=== PATIENT | male | born 1995 | race Caucasian/White ===

== ENCOUNTER 2020-01-15 01:16 | Inpatient (IN) | payer BC ==
[~2020-01-15] VITALS: Ht 177.8 cm; Wt 60.8 kg
[2020-01-15 02:30] VITALS: BP 122/74
--- NOTE | 2020-01-15 02:30 | NUR ---
NURSE NOTES: received patient via gurney accompanied by EMT'S. patient is a direct admit from [facility] [address] [facility]. alert and oriented x4, ambulatory. with a right hand swelling, 2/5 movement on the right hand, + sensation. per patient, there is a discomfort on the right hand when at rest. no discomfort upon movement." no skin issues. all belongings on the bedside and was signed by the patient. medical hx and home meds was given by the patient. oriented to the room set-up. bed locked and in lowest position. call light and light button within easy reach. paged dr. castellanos for admission orders, awaiting for call back.
--- NOTE | 2020-01-15 03:30 | NUR ---
NURSE NOTES: received a phone call from dr. castellanos and received admission orders. orders noted and carried out. charge nurse made aware.
[2020-01-15] MEDS ORDERED: HYDROcodone/Acetamin 5/325 tab ORAL PRN (04:30)
[2020-01-15] MEDS ORDERED: GABAPENTIN600 MG ORAL (04:46)
[2020-01-15] MEDS ORDERED: METOPROLOL TART50 M1 ORAL (04:46)
[2020-01-15] MEDS ORDERED: KEPPRA750 MG ORAL (04:46)
[2020-01-15] MEDS: D5 1/2NS 1,000 ML IV SCH ×2 (05:20→18:20)
[2020-01-15] MEDS: Ampicillin/Sulbactam Sod 3 GM in NS 110 ML IVPB SCH ×2 (05:20→11:28)
--- NOTE | 2020-01-15 07:04 | NUR ---
HAND-OFF: Report given to ktaey russo. patient is in stable condition.no pain or discomfort. not in any form of respiratory distress. plan of care endorsed
--- NOTE | 2020-01-15 07:15 | NUR ---
NURSE NOTES: Handoff received from Eliz Flores RN. Patient is asleep, no signs of distress noted. Left forearm IV is patent and intact, running IVF as ordered. Bed is low and locked, side rails up x2, call light within reach. Seizure precautions maintained.
[2020-01-15 08:00] VITALS: BP 117/74
[2020-01-15 08:38] LABS: HEMATOCRIT 44.7 % (42.0-52.0); HEMOGLOBIN 15.6 G/DL (14.2-18.0); MEAN CORPUSCULAR VOLUME 88 FL (80-99); PLATELET COUNT 233 K/UL (150-450); RED BLOOD COUNT 5.06 M/UL (4.70-6.10); RED CELL DISTRIBUTION WIDTH 10.9 % (11.6-14.8); WHITE BLOOD COUNT 5.7 K/UL (4.8-10.8)
[2020-01-15 09:03] LABS: ALANINE AMINOTRANSFERASE 121 U/L (12-78); ALBUMIN 3.3 G/DL (3.4-5.0); ALBUMIN/GLOBULIN RATIO 1.2 (1.0-2.7); ALKALINE PHOSPHATASE 41 U/L (46-116); ANION GAP 7 mmol/L (5-15); ASPARTATE AMINO TRANSFERASE 408 U/L (15-37); BILIRUBIN,TOTAL 0.7 MG/DL (0.2-1.0); BLOOD UREA NITROGEN 11 mg/dL (7-18); CALCIUM 8.4 MG/DL (8.5-10.1); CARBON DIOXIDE 30 MMOL/L (21-32); CHLORIDE 104 MMOL/L (98-107); CREATININE 1.1 MG/DL (0.55-1.30); PHOSPHORUS 4.8 MG/DL (2.5-4.9); SODIUM 141 MMOL/L (136-145)
--- NOTE | 2020-01-15 10:00 | NUR ---
NURSE NOTES: Patient's medications verified with patient and ordered from pharmacy.
[2020-01-15] MEDS: Metoprolol Tartrate 50mg tab ORAL SCH ×2 (11:29→20:58)
[2020-01-15 12:00] VITALS: BP 130/77
[2020-01-15] MEDS: Vancomycin 1gm/D5W 275ml IVPB SCH ×2 (13:04)
--- NOTE | 2020-01-15 14:50 | Consultation ---
History of Present Illness General Date patient seen: January 15, 2020 Present Illness HPI 24 y/o M with no prior medical history is transferred from [place] [facility] to [facility] on for R hand cellulitis. Patient presented with worsening R hand swelling and pain. He reported that sustained an upper extremity trauma; puncture wound to dorsum of his R hand after accidentally hitting the dorsal aspect of a dirty wooden table that he picked up from the side of the street. +intermittent numbness to thumb. Last tetanus shot was 5 yrs ago. Denied fever/chills. Allergies: Coded Allergies: AMOXICILLIN (Verified Allergy, Unknown, 01/15/20) patient referred had episodes of mouth sores when he was 8 years old. He received 2 doses of uNasyn on 01/14/20 in the hospital with no reaction. Medication History Scheduled PRN Gabapentin* (Gabapentin*), 600 MG ORAL FOUR TIMES A DAY PRN for For Anxiety, ( Reported) Levetiracetam (Keppra), 750 MG ORAL TID PRN for For Seizures, (Reported) Metoprolol Tartrate* (Metoprolol Tartrate*), 50 MG ORAL BID PRN for For High Blood Pressure, (Reported) Patient History Healthcare decision maker Resuscitation status Advanced Directive on File Patient History Narrative Pmhx: as above Shx: reviewed Fhmx: non contributory Physical Exam Last 24 Hour Vital Signs Date Time Temp Pulse Resp B/P (MAP) Pulse Ox O2 Delivery O2 Flow Rate FiO2 01/15/20 12:00 98.0 91 19 130/77 (94) 99 01/15/20 11:29 94 126/73 01/15/20 09:00 Room Air 01/15/20 08:00 98.9 56 18 117/74 (88) 100 01/15/20 04:12 Room Air 01/15/20 02:30 97.6 96 18 122/74 (90) 100 Intake and Output 01/14/20 01/15/20 19:00 07:00 Intake Total 500 ml Balance 500 ml Intake Oral 500 ml # Voids 2 Laboratory Tests Test 01/15/20 07:45 White Blood Count 5.7 K/UL (4.8-10.8) Red Blood Count 5.06 M/UL (4.70-6.10) Hemoglobin 15.6 G/DL (14.2-18.0) Hematocrit 44.7 % (42.0-52.0) Mean Corpuscular Volume 88 FL (80-99) Mean Corpuscular Hemoglobin 30.8 PG (27.0-31.0) Mean Corpuscular Hemoglobin Concent 34.8 G/DL (32.0-36.0) Red Cell Distribution Width 10.9 % (11.6-14.8) L Platelet Count 233 K/UL (150-450) Mean Platelet Volume 6.3 FL (6.5-10.1) L Neutrophils (%) (Auto) % (45.0-75.0) Lymphocytes (%) (Auto) % (20.0-45.0) Monocytes (%) (Auto) % (1.0-10.0) Eosinophils (%) (Auto) % (0.0-3.0) Basophils (%) (Auto) % (0.0-2.0) Differential Total Cells Counted 100 Neutrophils % (Manual) 72 % (45-75) Lymphocytes % (Manual) 15 % (20-45) L Monocytes % (Manual) 11 % (1-10) H Eosinophils % (Manual) 2 % (0-3) Basophils % (Manual) 0 % (0-2) Band Neutrophils 0 % (0-8) Platelet Estimate Adequate Platelet Morphology Normal Red Blood Cell Morphology Normal Sodium Level 141 MMOL/L (136-145) Potassium Level 4.0 MMOL/L (3.5-5.1) Chloride Level 104 MMOL/L (98-107) Carbon Dioxide Level 30 MMOL/L (21-32) Anion Gap 7 mmol/L (5-15) Blood Urea Nitrogen 11 mg/dL (7-18) Creatinine 1.1 MG/DL (0.55-1.30) Estimat Glomerular Filtration Rate > 60 mL/min (>60) Glucose Level 97 MG/DL (74-106) Calcium Level 8.4 MG/DL (8.5-10.1) L Phosphorus Level 4.8 MG/DL (2.5-4.9) Magnesium Level 2.0 MG/DL (1.8-2.4) Total Bilirubin 0.7 MG/DL (0.2-1.0) Aspartate Amino Transf (AST/SGOT) 408 U/L (15-37) H Alanine Aminotransferase (ALT/SGPT) 121 U/L (12-78) H Alkaline Phosphatase 41 U/L (46-116) L C-Reactive Protein, Quantitative 1.8 mg/dL (0.00-0.90) H Total Protein 6.1 G/DL (6.4-8.2) L Albumin 3.3 G/DL (3.4-5.0) L Globulin 2.8 g/dL Albumin/Globulin Ratio 1.2 (1.0-2.7) Height (Feet): 5 Height (Inches): 10.00 Weight (Pounds): 135 Medications Current Medications Medications (Trade) Dose Ordered Sig/Diane Route PRN Reason Start Time Stop Time Status Last Admin Dose Admin Acetaminophen (Tylenol) 650 mg Q6H PRN ORAL Mild Pain (Pain Scale 1-3) 01/15/20 04:30 02/14/20 04:29 Acetaminophen (Tylenol) 650 mg Q6H PRN ORAL Temp >100.5 01/15/20 04:30 02/14/20 04:29 Acetaminophen/ Hydrocodone Bitart ([place] 5/325) 1 tab Q6H PRN ORAL For Pain 01/15/20 04:30 01/22/20 04:29 Ampicillin Sodium/ Sulbactam Sodium 3 gm/Sodium Chloride 110 ml @ 220 mls/hr Q6HR IVPB 01/15/20 06:00 01/22/20 05:59 01/15/20 11:28 Dextrose/Sodium Chloride 1,000 ml @ 75 mls/hr [id number] IV 01/15/20 05:00 02/14/20 04:59 01/15/20 05:20 Gabapentin (Neurontin) 600 mg FOUR TIMES A DAY ORAL 01/15/20 10:45 02/14/20 10:44 01/15/20 11:29 Levetiracetam (Keppra) 150 mg DAILY ORAL 01/15/20 10:15 02/14/20 10:14 UNV Metoprolol Tartrate (Lopressor) 50 mg Q12HR ORAL 01/15/20 10:45 04/14/20 10:44 01/15/20 11:29 Ondansetron HCl (Zofran) 4 mg Q6H PRN IVP Nausea & Vomiting 01/15/20 04:30 02/14/20 04:29 Vancomycin HCl (Vanco pharmacy to dose) 1 ea DAILY PRN MISC Per rx protocol 01/15/20 04:30 02/14/20 04:29 Vancomycin HCl 1 gm/Dextrose 275 ml @ 183.708 mls/hr Q12HR@0100,1300 IVPB 01/15/20 13:00 01/20/20 12:59 01/15/20 13:04 Assessment/Plan Assessment/Plan: Abx: IV Vancomcyin 01/14- Unasyn 01/14 Assessment: R hand cellulitis/myositis (after cut with a dirty wooden table) -MRI R hand (at [place]): prelim report: severe diffuse muscle swelling and edema most prominent in between 1st and 2nd metacarpal. Heterogeneous contrast enhancement throughout the muscles. Extensive subcutaneous edema. No discrete fluid collection to suggest abscess. No marrow signal abnormality or joint effusion. Likely represents severe cellulitis/myositis. Focal fluid and contrast enhancement in carpal tunnel adjacent to tendons. Afebrile No leukocytosis Elevated LFTs Plan: -Continue empiric IV Vancomycin #1 and add Cefepime for gram negative/ pseudomonal coverage given exposure to dirty wood table from the streets. -f/u cx -Monitor CBC/CMP, temperatures -HIV ab, Hep panel, Abd US Thank you for consulting [facility]. Will continue to follow along with you. Discussed with Sarai Bowman M.D. January 15, 2020 14:50
--- NOTE | 2020-01-15 14:52 | History & Physical ---
History and Physical History & Physicial Dictated for Int Med-Dr Kruse no. [id number] Leonel Segura MD January 15, 2020 14:52
[2020-01-15 16:00] VITALS: BP 121/71
--- NOTE | 2020-01-15 19:15 | History and Physical Report ---
DATE OF ADMISSION: 01/15/2020 CHIEF COMPLAINT: This is a 24-year-old male who presents with a chief complaint of right hand pain and swelling. HISTORY OF PRESENT ILLNESS: Began on Thursday evening, 01/11/2020. Patient tried to move an abandoned table by the side of the street. Patient injured his right hand on the dorsum. Patient awoke morning and was experiencing numbness of the right hand. Patient then began to experience swelling of the right hand on , 01/12/2020. Patient states on Thursday morning 01/14/2020, patient was unable to extend his fingers. Patient initially presented to [facility] emergency room. An MRI revealed swelling of the right hand however no osteomyelitis. Patient is transferred to [facility] for insurance purposes. Patient is admitted with right hand cellulitis and swelling to rule out osteomyelitis or tenosynovitis. REVIEW OF SYSTEMS: CONSTITUTIONAL: Patient denies weight loss or weight gain. Patient denies fevers or chills. HEENT: Patient denies ear or throat pain. Patient denies headache. CARDIOVASCULAR: Patient denies palpitations or chest pain. CHEST: Patient denies wheeze or shortness of breath. ABDOMINAL: Patient denies nausea, vomiting, diarrhea, or constipation. GENITOURINARY: Patient denies dysuria or increased frequency of urination. NEUROMUSCULAR: Patient complains of right hand swelling and numbness as above. Patient also has history of seizure disorder. Patient denies generalized weakness. PAST MEDICAL HISTORY: Significant for: 1. Anxiety disorder. 2. Tachycardia related to anxiety. 3. Seizure disorder. PAST SURGICAL HISTORY: Patient denies. CURRENT MEDICATIONS: 1. Gabapentin 600 mg 1 tablet p.o. 4 times daily. 2. Keppra 750 mg p.o. 3 times daily. 3. Metoprolol 50 mg p.o. twice daily. ALLERGIES: To amoxicillin and sulfa. SOCIAL HISTORY: Patient is single. Patient admits to occasional vaping. Patient admits to occasional alcohol use. Patient denies drugs of abuse. PHYSICAL EXAMINATION: VITAL SIGNS: Temperature 98.6, respirations 16, pulse 106, blood pressure 121/81. GENERAL: Patient is well-developed, well-nourished male, in no apparent distress. HEENT: Eyes, pupils are equal and responsive to light and accommodation. Extraocular movements are intact. NECK: Supple without lymphadenopathy. CHEST: Lungs are clear to auscultation bilaterally without wheezes or rales. CARDIOVASCULAR: Regular rhythm and rate. S1, S2 are normal without murmurs, rubs, or gallops. ABDOMEN: Soft, nontender, and nondistended. Positive bowel sounds. No evidence of hepatosplenomegaly. Currently, no rebound or guarding noted. EXTREMITIES: Right hand is noticeably swollen compared to the left. Swelling includes both the dorsum and palmar surface. Patient is unable to extend right second through fifth fingers. NEUROLOGICAL: Cranial nerves II through XII are grossly intact without focal deficits. Motor strength is 5/5 bilaterally. Deep tendon reflexes are 2+ plantar. LABORATORY STUDIES: WBC 6.7, hemoglobin 14.9, hematocrit 44.4, platelets 280,000. Sodium 138, potassium 4.2, chloride 101, CO2 30, BUN 18, creatinine 1.09, glucose 74. MRI of the right hand from [place] demonstrated swelling of the right hand worse between the second and third fingers. ASSESSMENT: This is a 24-year-old male. 1. Cellulitis of the right hand. 2. Swelling of the right hand. 3. Pain of the right hand. 4. Anxiety disorder. 5. Seizure disorder. 6. Tachycardia. TREATMENT: 1. Right hand cellulitis/right hand pain. Patient has been started empirically on intravenous vancomycin and Unasyn. Unasyn will be discontinued secondary to amoxicillin allergy. He is to be switched to Levaquin. An Infectious Disease consultation has been obtained with Dr. Mac. A Surgery consultation has been obtained with Dr. Caban. 2. Anxiety disorder. Continue Neurontin as above. 3. Seizure disorder. Continue Keppra as above. 4. Tachycardic. Continue metoprolol as above. Leonel Segura M.D. DR: EVAN JOB#: [id number] CC:
--- NOTE | 2020-01-15 19:30 | NUR ---
HAND-OFF: Report given to BARBARA Simeon.
[2020-01-15 20:00] VITALS: BP 99/58
[2020-01-15] MEDS: Cefepime HCl 2 GM in D5W 55 ML IV SCH (21:41)
--- NOTE | 2020-01-15 23:58 | NUR ---
nurse's notes: received patient awake and alert; denies any pain or distress; right hand and fingers noted to be swollen; admits to some numbness and tingling; able to flex fingers without experiencing pain; plan of care discussed with patient who verbalized understanding and is in agreement. will continue to monitor.
[2020-01-16] VITALS: BP 116/58
[2020-01-16] MEDS: D5 1/2NS 1,000 ML IV SCH (01:27)
[2020-01-16] MEDS: Vancomycin 1gm/D5W 275ml IVPB SCH ×4 (01:27→13:00)
[2020-01-16 04:00] VITALS: BP 115/58
--- NOTE | 2020-01-16 06:57 | NUR ---
NURSE'S NOTES: NO SIGNIFICANT CHANGES NOTED THIS SHIFT; NO C/O OF PAIN; SLEPT WELL DURING THE NIGHT; STILL NO VISIBLE DRAINAGE FROM RIGHT HAND PUNCTURE WOUND. VSS.
[2020-01-16 07:12] LABS: ANION GAP 7 mmol/L (5-15); BLOOD UREA NITROGEN 9 mg/dL (7-18); CALCIUM 8.4 MG/DL (8.5-10.1); CARBON DIOXIDE 28 MMOL/L (21-32); CHLORIDE 106 MMOL/L (98-107); CREATININE 1.2 MG/DL (0.55-1.30); POTASSIUM 4.3 MMOL/L (3.5-5.1); SODIUM 141 MMOL/L (136-145)
[2020-01-16 07:13] LABS: BASOPHILS % (AUTO) 0.7 % (0.0-2.0); EOSINOPHILS % (AUTO) 2.1 % (0.0-3.0); HEMATOCRIT 45.9 % (42.0-52.0); HEMOGLOBIN 16.1 G/DL (14.2-18.0); LYMPHOCYTES % (AUTO) 20.8 % (20.0-45.0); MEAN CORPUSCULAR VOLUME 89 FL (80-99); MONOCYTES % (AUTO) 9.8 % (1.0-10.0); NEUTROPHILS % (AUTO) 66.7 % (45.0-75.0); PLATELET COUNT 257 K/UL (150-450); RED BLOOD COUNT 5.17 M/UL (4.70-6.10); RED CELL DISTRIBUTION WIDTH 10.9 % (11.6-14.8)
--- NOTE | 2020-01-16 07:30 | NUR ---
NURSE NOTES: Patient is in bed asleep. Stable. Breathing is even and unlabored. No visible signs of distress noted. Patient is in bed in locked and lowest position with call light within reach. All needs met at this time. Will continue to monitor.
--- NOTE | 2020-01-16 08:50 | NUR ---
NURSE NOTES: US being done at bedside.
[2020-01-16 09:00] VITALS: BP 107/61
[2020-01-16] MEDS: Metoprolol Tartrate 50mg tab ORAL SCH ×2 (09:00→21:12)
[2020-01-16] MEDS: Cefepime HCl 2 GM in D5W 55 ML IV SCH ×2 (09:00→21:12)
--- NOTE | 2020-01-16 12:00 | NUR ---
*-* NO INSURANCE INFORMATION IN THE BAR UNABLE TO SEND CLINICALS OR REVIEWS *-*
[2020-01-16 13:04] VITALS: BP 114/63
--- NOTE | 2020-01-16 13:31 | Consultation ---
History of Present Illness General Date patient seen: Jan 16, 2020 Present Illness HPI 24 year old male with hx of HTN, seizures presented initially with CC of swelling and pain or right hand, which started after one day of getting injured on back of that hand. A MRI ruled out osteomyelitis and he was transferred [place] [facility] [place]. He looks and is comfortable now. The swelling of the right hand has been decreasing. Allergies: Coded Allergies: AMOXICILLIN (Verified Allergy, Unknown, 01/15/20) patient referred had episodes of mouth sores when he was 8 years old. He received 2 doses of uNasyn on 01/14/20 in the hospital with no reaction. Medication History Scheduled PRN Gabapentin* (Gabapentin*), 600 MG ORAL FOUR TIMES A DAY PRN for For Anxiety, ( Reported) Levetiracetam (Keppra), 750 MG ORAL TID PRN for For Seizures, (Reported) Metoprolol Tartrate* (Metoprolol Tartrate*), 50 MG ORAL BID PRN for For High Blood Pressure, (Reported) Patient History Healthcare decision maker Resuscitation status Advanced Directive on File Past Medical/Surgical History Past Medical/Surgical History: (1) Seizure disorder (2) History of hypertension Review of Systems All Other Systems: negative except mentioned in HPI Physical Exam General Appearance: thin Lines, tubes and drains: peripheral HEENT: normocephalic, atraumatic Neck: non-tender, normal alignment Respiratory/Chest: chest wall non-tender, lungs clear Breasts: no masses Cardiovascular/Chest: normal peripheral pulses, normal rate Abdomen: normal bowel sounds, non tender Genitourinary/Rectal: normal genital exam, normal rectal exam Extremities: normal range of motion, non-tender Last 24 Hour Vital Signs Date Time Temp Pulse Resp B/P (MAP) Pulse Ox O2 Delivery O2 Flow Rate FiO2 01/16/20 13:04 97.9 65 20 114/63 (80) 97 01/16/20 09:00 97.3 66 20 107/61 (76) 97 01/16/20 09:00 66 107/61 01/16/20 09:00 Room Air 01/16/20 04:00 98.9 64 18 115/58 (77) 96 01/16/20 00:00 98.5 81 18 116/58 (77) 96 01/15/20 21:00 Room Air 01/15/20 20:58 86 99/58 01/15/20 20:00 98.4 86 18 99/58 (72) 99 01/15/20 16:00 98.6 67 19 121/71 (88) 98 Intake and Output 01/15/20 01/16/20 19:00 07:00 Intake Total 1200 ml 1210.000 ml Balance 1200 ml 1210.000 ml IV Total 1210.000 ml Other 1200 ml # Voids 2 Laboratory Tests Test 01/16/20 05:50 01/16/20 12:00 White Blood Count 9.0 K/UL (4.8-10.8) # Red Blood Count 5.17 M/UL (4.70-6.10) Hemoglobin 16.1 G/DL (14.2-18.0) Hematocrit 45.9 % (42.0-52.0) Mean Corpuscular Volume 89 FL (80-99) Mean Corpuscular Hemoglobin 31.2 PG (27.0-31.0) H Mean Corpuscular Hemoglobin Concent 35.1 G/DL (32.0-36.0) Red Cell Distribution Width 10.9 % (11.6-14.8) L Platelet Count 257 K/UL (150-450) Mean Platelet Volume 6.6 FL (6.5-10.1) Neutrophils (%) (Auto) 66.7 % (45.0-75.0) Lymphocytes (%) (Auto) 20.8 % (20.0-45.0) Monocytes (%) (Auto) 9.8 % (1.0-10.0) Eosinophils (%) (Auto) 2.1 % (0.0-3.0) Basophils (%) (Auto) 0.7 % (0.0-2.0) Sodium Level 141 MMOL/L (136-145) Potassium Level 4.3 MMOL/L (3.5-5.1) Chloride Level 106 MMOL/L (98-107) Carbon Dioxide Level 28 MMOL/L (21-32) Anion Gap 7 mmol/L (5-15) Blood Urea Nitrogen 9 mg/dL (7-18) Creatinine 1.2 MG/DL (0.55-1.30) Estimat Glomerular Filtration Rate > 60 mL/min (>60) Glucose Level 96 MG/DL (74-106) Calcium Level 8.4 MG/DL (8.5-10.1) L Hepatitis A IgM Antibody Pending Hepatitis B Surface Antigen Pending Hepatitis B Core IgM Antibody Pending Hepatitis C Antibody Pending HIV (1&2) Antibody Rapid Negative (NEGATIVE) Vancomycin Level Trough 9.6 ug/mL (5.0-12.0) Height (Feet): 5 Height (Inches): 10.00 Weight (Pounds): 135 Medications Current Medications Medications (Trade) Dose Ordered Sig/Diane Route PRN Reason Start Time Stop Time Status Last Admin Dose Admin Acetaminophen (Tylenol) 650 mg Q6H PRN ORAL Mild Pain (Pain Scale 1-3) 01/15/20 04:30 02/14/20 04:29 Acetaminophen (Tylenol) 650 mg Q6H PRN ORAL Temp >100.5 01/15/20 04:30 02/14/20 04:29 Acetaminophen/ Hydrocodone Bitart ([place] 5/325) 1 tab Q6H PRN ORAL For Pain 01/15/20 04:30 01/22/20 04:29 Cefepime HCl 2 gm/ Dextrose 55 ml @ 110 mls/hr EVERY 12 HOURS IV 01/15/20 21:00 01/22/20 20:59 01/16/20 09:00 Dextrose/Sodium Chloride 1,000 ml @ 75 mls/hr [id number] IV 01/15/20 05:00 02/14/20 04:59 01/16/20 01:27 Gabapentin (Neurontin) 600 mg FOUR TIMES A DAY ORAL 01/15/20 10:45 02/14/20 10:44 01/16/20 09:00 Levetiracetam (Keppra) 500 mg DAILY ORAL 01/15/20 16:00 02/14/20 15:59 01/16/20 09:00 Levofloxacin 100 ml @ 100 mls/hr Q24H IVPB 01/15/20 16:00 01/22/20 15:59 01/15/20 16:52 Metoprolol Tartrate (Lopressor) 50 mg Q12HR ORAL 01/15/20 10:45 04/14/20 10:44 01/15/20 11:29 Ondansetron HCl (Zofran) 4 mg Q6H PRN IVP Nausea & Vomiting 01/15/20 04:30 02/14/20 04:29 Vancomycin HCl (Vanco pharmacy to dose) 1 ea DAILY PRN MISC Per rx protocol 01/15/20 04:30 02/14/20 04:29 Vancomycin HCl 1 gm/Dextrose 275 ml @ 183.708 mls/hr Q12HR@0100,1300 IVPB 01/15/20 13:00 01/20/20 12:59 01/16/20 01:27 Assessment/Plan Problem List: (1) Cellulitis of hand, right ICD Codes: L03.113 - Cellulitis of right upper limb SNOMED: 58116950 (2) History of hypertension ICD Codes: Z86.79 - Personal history of other diseases of the circulatory system SNOMED: 930654688 (3) Seizure disorder ICD Codes: G40.909 - Epilepsy, unspecified, not intractable, without status epilepticus SNOMED: 568011117 Assessment/Plan: iv abx check cultures from [facility] check electrolytes monitor BP home meds reviewed dvt prophylaxis. Jarrell Collins MD Jan 16, 2020 13:31
--- NOTE | 2020-01-16 14:20 | Diagnostic Imaging Report ---
Indication: Elevated liver function tests Technique: Potts-scale and duplex images of the upper abdomen were obtained Comparison: none Findings: Gallbladder is unremarkable, without stones, wall thickening, nor pericholecystic fluid. Wall thickness is upper limits of normal, probably due to underdistention. Sonographic Chase's sign is negative. Common bile duct measures to mm in diameter. No intrahepatic biliary ductal dilatation. Liver demonstrates normal echogenicity, no focal abnormality. Portal vein and hepatic veins are patent. Pancreas is unremarkable. Spleen is unremarkable. Left kidney measures 11.4 cm in length. Right kidney measures 10.6 cm length. Both kidneys demonstrate normal echogenicity. There is no hydronephrosis. No focal abnormality . Non-aneurysmal abdominal aorta . Impression: Negative
--- NOTE | 2020-01-16 14:26 | NUR ---
*-* INSURANCE *-* ALL AVAILABLE CLINICALS HAVE BEEN FAXED TO: SHELLI BRITO:DEBRA REF# [id number] P; [phone] F: [phone]
--- NOTE | 2020-01-16 14:40 | Infectious Diseases Prog Note ---
Assessment/Plan Assessment/Plan Assessment: R hand cellulitis/myositis (after cut with a dirty wooden table); much improved -01/16 MRI hand: EXTENSIVE SWELLING AND EDEMA NOTED IN MULTIPLE MUSCLE GROUPS OF THE HAND WITH INTENSE ENHANCEMENT ON POSTCONTRAST IMAGES. GIVEN THE PATIENT' S HISTORY, FINDINGS SUGGESTIVE OF EXTENSIVE RHABDOMYOLYSIS OF THE HAND MUSCULATURE. NO MR EVIDENCE OF HEMATOMA, FLUID COLLECTION. NO ACUTE BONY ABNORMALITY DEMONSTRATED. -MRI R hand (at [facility]): prelim report: severe diffuse muscle swelling and edema most prominent in between 1st and 2nd metacarpal. Heterogeneous contrast enhancement throughout the muscles. Extensive subcutaneous edema. No discrete fluid collection to suggest abscess. No marrow signal abnormality or joint effusion. Likely represents severe cellulitis/myositis. Focal fluid and contrast enhancement in carpal tunnel adjacent to tendons. Afebrile No leukocytosis Elevated LFTs; improving -Abd US: Negative -HIV ab screen neg -Acute Hep panel neg Plan: -Continue empiric IV Vancomycin #3 and Cefepime #3 for gram negative/ pseudomonal coverage given exposure to dirty wood table from the streets. --upon discharge will transition to PO Bactrim DS 1 tab bid and Levaquin 500mg qd for 10 more days -01/15 SP Levaquin #2 -01/14 SP Unasyn #1 -f/u cx -Monitor CBC/CMP, temperatures Thank you for consulting [facility]. Will continue to follow along with you. Discussed with RN. Subjective Allergies: Coded Allergies: AMOXICILLIN (Verified Allergy, Unknown, 01/15/20) patient referred had episodes of mouth sores when he was 8 years old. He received 2 doses of uNasyn on 01/14/20 in the hospital with no reaction. Subjective afebrile no leukocytosis Bcx NTD LFTs improving R hand swelling, redness and TTP much improved Objective Vital Signs Last 24 Hour Vital Signs Date Time Temp Pulse Resp B/P (MAP) Pulse Ox O2 Delivery O2 Flow Rate FiO2 01/16/20 13:04 97.9 65 20 114/63 (80) 97 01/16/20 09:00 97.3 66 20 107/61 (76) 97 01/16/20 09:00 66 107/61 01/16/20 09:00 Room Air 01/16/20 04:00 98.9 64 18 115/58 (77) 96 01/16/20 00:00 98.5 81 18 116/58 (77) 96 01/15/20 21:00 Room Air 01/15/20 20:58 86 99/58 01/15/20 20:00 98.4 86 18 99/58 (72) 99 01/15/20 16:00 98.6 67 19 121/71 (88) 98 Height (Feet): 5 Height (Inches): 10.00 Weight (Pounds): 135 Objective GENERAL: Patient is well-developed, well-nourished male, in no apparent distress. HEENT: Eyes, pupils are equal and responsive to light and accommodation. Extraocular movements are intact. NECK: Supple CHEST: Lungs are clear to auscultation bilaterally without wheezes or rales. CARDIOVASCULAR: Regular rhythm and rate. S1, S2 are normal without murmurs, rubs, or gallops. ABDOMEN: Soft, nontender, and nondistended. Positive bowel sounds. No evidence of hepatosplenomegaly. Currently, no rebound or guarding noted. EXTREMITIES: Right hand is noticeably swollen compared to the left. Swelling includes both the dorsum and palmar surface. Patient is unable to extend right second through fifth fingers.; swelling and TTP improving; redness resolved Laboratory Tests Test 01/16/20 05:50 01/16/20 12:00 White Blood Count 9.0 K/UL (4.8-10.8) # Red Blood Count 5.17 M/UL (4.70-6.10) Hemoglobin 16.1 G/DL (14.2-18.0) Hematocrit 45.9 % (42.0-52.0) Mean Corpuscular Volume 89 FL (80-99) Mean Corpuscular Hemoglobin 31.2 PG (27.0-31.0) H Mean Corpuscular Hemoglobin Concent 35.1 G/DL (32.0-36.0) Red Cell Distribution Width 10.9 % (11.6-14.8) L Platelet Count 257 K/UL (150-450) Mean Platelet Volume 6.6 FL (6.5-10.1) Neutrophils (%) (Auto) 66.7 % (45.0-75.0) Lymphocytes (%) (Auto) 20.8 % (20.0-45.0) Monocytes (%) (Auto) 9.8 % (1.0-10.0) Eosinophils (%) (Auto) 2.1 % (0.0-3.0) Basophils (%) (Auto) 0.7 % (0.0-2.0) Sodium Level 141 MMOL/L (136-145) Potassium Level 4.3 MMOL/L (3.5-5.1) Chloride Level 106 MMOL/L (98-107) Carbon Dioxide Level 28 MMOL/L (21-32) Anion Gap 7 mmol/L (5-15) Blood Urea Nitrogen 9 mg/dL (7-18) Creatinine 1.2 MG/DL (0.55-1.30) Estimat Glomerular Filtration Rate > 60 mL/min (>60) Glucose Level 96 MG/DL (74-106) Calcium Level 8.4 MG/DL (8.5-10.1) L Hepatitis A IgM Antibody Pending Hepatitis B Surface Antigen Pending Hepatitis B Core IgM Antibody Pending Hepatitis C Antibody Pending HIV (1&2) Antibody Rapid Negative (NEGATIVE) Vancomycin Level Trough 9.6 ug/mL (5.0-12.0) Current Medications Medications (Trade) Dose Ordered Sig/Diane Route PRN Reason Start Time Stop Time Status Last Admin Dose Admin Acetaminophen (Tylenol) 650 mg Q6H PRN ORAL Mild Pain (Pain Scale 1-3) 01/15/20 04:30 02/14/20 04:29 Acetaminophen (Tylenol) 650 mg Q6H PRN ORAL Temp >100.5 01/15/20 04:30 02/14/20 04:29 Acetaminophen/ Hydrocodone Bitart ([place] 5/325) 1 tab Q6H PRN ORAL For Pain 01/15/20 04:30 01/22/20 04:29 Cefepime HCl 2 gm/ Dextrose 55 ml @ 110 mls/hr EVERY 12 HOURS IV 01/15/20 21:00 01/22/20 20:59 01/16/20 09:00 Dextrose/Sodium Chloride 1,000 ml @ 75 mls/hr [id number] IV 01/15/20 05:00 02/14/20 04:59 01/16/20 01:27 Gabapentin (Neurontin) 600 mg FOUR TIMES A DAY ORAL 01/15/20 10:45 02/14/20 10:44 01/16/20 13:00 Levetiracetam (Keppra) 500 mg DAILY ORAL 01/15/20 16:00 02/14/20 15:59 01/16/20 09:00 Levofloxacin 100 ml @ 100 mls/hr Q24H IVPB 01/15/20 16:00 01/22/20 15:59 01/15/20 16:52 Metoprolol Tartrate (Lopressor) 50 mg Q12HR ORAL 01/15/20 10:45 04/14/20 10:44 01/15/20 11:29 Ondansetron HCl (Zofran) 4 mg Q6H PRN IVP Nausea & Vomiting 01/15/20 04:30 02/14/20 04:29 Vancomycin HCl (Vanco pharmacy to dose) 1 ea DAILY PRN MISC Per rx protocol 01/15/20 04:30 02/14/20 04:29 Vancomycin HCl 1 gm/Dextrose 275 ml @ 183.708 mls/hr Q12HR@0100,1300 IVPB 01/15/20 13:00 01/16/20 15:00 01/16/20 13:00 Vancomycin/Sodium Chloride 275 ml @ 183.333 mls/hr Q12HR@0000,1200 IVPB 01/17/20 00:00 01/22/20 00:00 Sarai Mac M.D. Jan 16, 2020 14:40
[2020-01-16 16:00] VITALS: BP 101/60
--- NOTE | 2020-01-16 16:48 | NUR ---
CASE MANAGEMENT: INITIAL REVIEW 24YR OLD MALE FROM [facility] CC:HAND PAIN SI:RIGHT HAND CELLULITIS 98.9 56 18 117/74 100% ON RA CA+ 8.4 AST 108 ALT 121 IS:IV AMPICILLIN \: [facility]G UNIT CASE MANAGEMENT: REVIEW 01/16/20 SI:RIGHT HAND CELLULITIS 97.3 66 20 107/61 97 % ON RA CA+ 8.4 IS:IV VANCO X1 IV CEFEPIME BID IV D5@75ML/HR NEURONTIN PO QQID KEPPRA PO QD LOPRESSOR PO BID US ABD Complete-Negative \: 3E MED SURG UNIT PLAN: CHECK CX FROM [facility]
[2020-01-16] MEDS ORDERED: D5 1/2NS 1000ml IV ONE (17:03)
--- NOTE | 2020-01-16 17:42 | Internal Med Progress Note ---
Subjective Date of Service: Jan 16, 2020 Physician Name Leonel Segura Attending Physician Jc Kruse MD Current Medications Medications (Trade) Dose Ordered Sig/Diane Route PRN Reason Start Time Stop Time Status Last Admin Dose Admin Acetaminophen (Tylenol) 650 mg Q6H PRN ORAL Mild Pain (Pain Scale 1-3) 01/15/20 04:30 02/14/20 04:29 Acetaminophen (Tylenol) 650 mg Q6H PRN ORAL Temp >100.5 01/15/20 04:30 02/14/20 04:29 Acetaminophen/ Hydrocodone Bitart ([place] 5/325) 1 tab Q6H PRN ORAL For Pain 01/15/20 04:30 01/22/20 04:29 Cefepime HCl 2 gm/ Dextrose 55 ml @ 110 mls/hr EVERY 12 HOURS IV 01/15/20 21:00 01/22/20 20:59 01/16/20 09:00 Dextrose/Sodium Chloride 1,000 ml @ 75 mls/hr [id number] IV 01/15/20 05:00 02/14/20 04:59 01/16/20 01:27 Gabapentin (Neurontin) 600 mg FOUR TIMES A DAY ORAL 01/15/20 10:45 02/14/20 10:44 01/16/20 13:00 Levetiracetam (Keppra) 500 mg DAILY ORAL 01/15/20 16:00 02/14/20 15:59 01/16/20 09:00 Metoprolol Tartrate (Lopressor) 50 mg Q12HR ORAL 01/15/20 10:45 04/14/20 10:44 01/15/20 11:29 Ondansetron HCl (Zofran) 4 mg Q6H PRN IVP Nausea & Vomiting 01/15/20 04:30 02/14/20 04:29 Vancomycin HCl (Vanco pharmacy to dose) 1 ea DAILY PRN MISC Per rx protocol 01/15/20 04:30 02/14/20 04:29 Vancomycin/Sodium Chloride 275 ml @ 183.333 mls/hr Q12HR@0000,1200 IVPB 01/17/20 00:00 01/22/20 00:00 Allergies: Coded Allergies: AMOXICILLIN (Verified Allergy, Unknown, 01/15/20) patient referred had episodes of mouth sores when he was 8 years old. He received 2 doses of uNasyn on 01/14/20 in the hospital with no reaction. ROS Limited/Unobtainable: No Constitutional: Reports: no symptoms HEENT: Reports: no symptoms Cardiovascular: Reports: no symptoms Respiratory: Reports: no symptoms Gastrointestinal/Abdominal: Reports: no symptoms Genitourinary: Reports: no symptoms Neurologic/Psychiatric: Reports: no symptoms Subjective 24 YO M admitted with right hand pain/swelling. Now right hand cellulitis/ tenosynovitis. Cover for Int Bin-DR Kruse Objective Last Vital Signs Date Time Temp Pulse Resp B/P (MAP) Pulse Ox O2 Delivery O2 Flow Rate FiO2 01/16/20 16:00 98.0 67 18 101/60 (74) 97 01/16/20 09:00 Room Air Laboratory Tests Test 01/16/20 05:50 01/16/20 12:00 White Blood Count 9.0 K/UL (4.8-10.8) # Red Blood Count 5.17 M/UL (4.70-6.10) Hemoglobin 16.1 G/DL (14.2-18.0) Hematocrit 45.9 % (42.0-52.0) Mean Corpuscular Volume 89 FL (80-99) Mean Corpuscular Hemoglobin 31.2 PG (27.0-31.0) H Mean Corpuscular Hemoglobin Concent 35.1 G/DL (32.0-36.0) Red Cell Distribution Width 10.9 % (11.6-14.8) L Platelet Count 257 K/UL (150-450) Mean Platelet Volume 6.6 FL (6.5-10.1) Neutrophils (%) (Auto) 66.7 % (45.0-75.0) Lymphocytes (%) (Auto) 20.8 % (20.0-45.0) Monocytes (%) (Auto) 9.8 % (1.0-10.0) Eosinophils (%) (Auto) 2.1 % (0.0-3.0) Basophils (%) (Auto) 0.7 % (0.0-2.0) Sodium Level 141 MMOL/L (136-145) Potassium Level 4.3 MMOL/L (3.5-5.1) Chloride Level 106 MMOL/L (98-107) Carbon Dioxide Level 28 MMOL/L (21-32) Anion Gap 7 mmol/L (5-15) Blood Urea Nitrogen 9 mg/dL (7-18) Creatinine 1.2 MG/DL (0.55-1.30) Estimat Glomerular Filtration Rate > 60 mL/min (>60) Glucose Level 96 MG/DL (74-106) Calcium Level 8.4 MG/DL (8.5-10.1) L Hepatitis A IgM Antibody Pending Hepatitis B Surface Antigen Pending Hepatitis B Core IgM Antibody Pending Hepatitis C Antibody Pending HIV (1&2) Antibody Rapid Negative (NEGATIVE) Vancomycin Level Trough 9.6 ug/mL (5.0-12.0) Intake and Output 01/15/20 01/16/20 18:59 06:59 Intake Total 1200 ml 1210.000 ml Balance 1200 ml 1210.000 ml IV Total 1210.000 ml Other 1200 ml # Voids 2 Objective PHYSICAL EXAMINATION: GENERAL: Patient is well-developed, well-nourished male, in no apparent distress. HEENT: Eyes, pupils are equal and responsive to light and accommodation. Extraocular movements are intact. NECK: Supple without lymphadenopathy. CHEST: Lungs are clear to auscultation bilaterally without wheezes or rales. CARDIOVASCULAR: Regular rhythm and rate. S1, S2 are normal without murmurs, rubs, or gallops. ABDOMEN: Soft, nontender, and nondistended. Positive bowel sounds. No evidence of hepatosplenomegaly. Currently, no rebound or guarding noted. EXTREMITIES: Right hand is noticeably swollen compared to the left. Swelling includes both the dorsum and palmar surface. Patient is unable to extend right second through fifth fingers. NEUROLOGICAL: Cranial nerves II through XII are grossly intact without focal deficits. Motor strength is 5/5 bilaterally. Deep tendon reflexes are 2+ plantar. Assessment/Plan Assessment/Plan ASSESSMENT: This is a 24-year-old male. 1. Cellulitis of the right hand. 2. Swelling of the right hand. 3. Pain of the right hand. 4. Anxiety disorder. 5. Seizure disorder. 6. Tachycardia. 7. Elevated liver funct tests TREATMENT: 1. Right hand cellulitis/right hand pain. ABX= vancomycin and cefepime. Unasyn will be discontinued secondary to amoxicillin allergy. S/P levaquin. Infectious Disease= Dr. Estefania. Surgery consultation= Dr. Caban. 2. Anxiety disorder. Continue Neurontin as above. 3. Seizure disorder. Continue Keppra as above. 4. Tachycardic. Continue metoprolol as above. 5. Abdominal ultrasound pending Leonel Segura MD Jan 16, 2020 17:42
[2020-01-16] MEDS ORDERED: Gadavist 7.5mMol/7.5ml vial IV PRN (17:45)
--- NOTE | 2020-01-16 19:29 | NUR ---
NURSE NOTES: Received report from BARBARA Lucero. Pt is awake, lying semi-street's; comfortably resting. No signs of acute distress noted. Pt denies any pain at this time. AOx4; able to make needs known. Checked IV site; patent and flushed. No erythema, bleeding, of infiltration noted. Bed at lowest position. Brakes on. Siderails up x3. Call light within reach. Will continue to monitor.
--- NOTE | 2020-01-16 19:30 | NUR ---
HAND-OFF: Report given to Imani JIMENEZ. Patient is stable.
[2020-01-16 19:59] VITALS: BP 113/64
[2020-01-16] MEDS: Vancomycin 1.25gm/NS Premix q24h IVPB SCH (23:53)
[2020-01-17] VITALS: BP 111/52
[2020-01-17 04:00] VITALS: BP 115/60
--- NOTE | 2020-01-17 07:10 | NUR ---
HAND-OFF: Report given to BARBARA Lucero. Pt is sleeping and in stable condition. Plan of care endorsed.
[2020-01-17 07:15] LABS: ALANINE AMINOTRANSFERASE 101 U/L (12-78); ALKALINE PHOSPHATASE 36 U/L (46-116); ANION GAP 6 mmol/L (5-15); ASPARTATE AMINO TRANSFERASE 226 U/L (15-37); BILIRUBIN,TOTAL 0.6 MG/DL (0.2-1.0); BLOOD UREA NITROGEN 14 mg/dL (7-18); CALCIUM 8.4 MG/DL (8.5-10.1); CARBON DIOXIDE 29 MMOL/L (21-32); CHLORIDE 105 MMOL/L (98-107); CREATININE 0.9 MG/DL (0.55-1.30); PHOSPHORUS 3.9 MG/DL (2.5-4.9); POTASSIUM 4.2 MMOL/L (3.5-5.1); SODIUM 140 MMOL/L (136-145)
--- NOTE | 2020-01-17 07:15 | NUR ---
NURSE NOTES: Patient is in bed awake and able to verbalize needs. Stable. Denies pain or SOB. Right hand appears swollen, patient denies discomfort. Patient instructed to use call light for assistance, verbalized understanding. Patient is in bed in locked position with call light within reach. All needs met at this time. WIll continue to monitor.
[2020-01-17 07:18] LABS: BASOPHILS % (AUTO) 1.1 % (0.0-2.0); EOSINOPHILS % (AUTO) 1.4 % (0.0-3.0); HEMOGLOBIN 15.1 G/DL (14.2-18.0); LYMPHOCYTES % (AUTO) 18.2 % (20.0-45.0); MEAN CORPUSCULAR VOLUME 89 FL (80-99); NEUTROPHILS % (AUTO) 69.3 % (45.0-75.0); PLATELET COUNT 201 K/UL (150-450); RED BLOOD COUNT 4.84 M/UL (4.70-6.10); RED CELL DISTRIBUTION WIDTH 10.8 % (11.6-14.8); WHITE BLOOD COUNT 7.1 K/UL (4.8-10.8)
[2020-01-17 08:00] VITALS: BP 119/67
--- NOTE | 2020-01-17 08:40 | NUR ---
NURSE NOTES: Patient taken downstairs for MRI.
--- NOTE | 2020-01-17 09:41 | NUR ---
NURSE NOTES: Patient arrived on unit. Stable.
[2020-01-17] MEDS: Metoprolol Tartrate 50mg tab ORAL SCH ×2 (09:43→20:36)
[2020-01-17] MEDS: Cefepime HCl 2 GM in D5W 55 ML IV SCH ×2 (09:43→20:35)
--- NOTE | 2020-01-17 10:34 | NUR ---
*-* INSURANCE *-* UPDATED CLINICALS AND REVIEW HAVE BEEN FAXED TO: SHELLI BRITO:DEBRA REF# [id number] P; [phone] F: [phone]
[2020-01-17 12:00] VITALS: BP 104/89
--- NOTE | 2020-01-17 12:22 | Diagnostic Imaging Report ---
EXAM: MRI MRI Hand wo/w Contrast RT TECHNIQUE: MR examination of the right hand includes sagittal T1, coronal T1, proton density, T2 and STIR sequences as well as axial T1 and T2 sequences. Following administration of intravenous gadolinium, axial and coronal fat-suppressed T1 images obtained. CLINICAL HISTORY: History of trauma to hand. Swelling and pain. COMPARISON: None FINDINGS: The dominant abnormality is extensive swelling and edema noted in multiple muscle groups of the hand including abductor and flexor muscles, the lumbricals as well as the interosseous muscles. These affected muscles appear enlarged with diffuse striated edema. There is no distinct fluid collection within the affected muscles. On postcontrast images, there is intense enhancement both at the periphery of these muscles as well as striated enhancement of internal fibers. The bony structures of the hand appear intact. Normal marrow signal demonstrated. Joint spaces are maintained. Visualized tendinous and ligamentous structures are unremarkable. IMPRESSION: EXTENSIVE SWELLING AND EDEMA NOTED IN MULTIPLE MUSCLE GROUPS OF THE HAND WITH INTENSE ENHANCEMENT ON POSTCONTRAST IMAGES. GIVEN THE PATIENT'S HISTORY, FINDINGS SUGGESTIVE OF EXTENSIVE RHABDOMYOLYSIS OF THE HAND MUSCULATURE. NO MR EVIDENCE OF HEMATOMA, FLUID COLLECTION. NO ACUTE BONY ABNORMALITY DEMONSTRATED.
[2020-01-17] MEDS: Vancomycin 1.25gm/NS Premix q24h IVPB SCH (12:30)
--- NOTE | 2020-01-17 14:05 | Pulmonology Progress Note ---
Subjective ROS Limited/Unobtainable: No Allergies: Coded Allergies: AMOXICILLIN (Verified Allergy, Unknown, 01/17/20) patient referred had episodes of mouth sores when he was 8 years old. He received 2 doses of uNasyn on 01/14/20 in the hospital with no reaction. Tolerates cephalosporins Objective Last 24 Hour Vital Signs Date Time Temp Pulse Resp B/P (MAP) Pulse Ox O2 Delivery O2 Flow Rate FiO2 01/17/20 12:00 98.3 62 20 104/89 (94) 98 01/17/20 09:43 64 119/67 01/17/20 08:50 Room Air 01/17/20 08:00 97.5 64 18 119/67 (84) 99 01/17/20 04:00 98.0 62 16 115/60 (78) 97 01/17/20 00:00 97.8 53 14 111/52 (71) 97 01/16/20 21:12 88 122/100 01/16/20 21:00 Room Air 01/16/20 19:59 98.1 77 17 113/64 (80) 98 01/16/20 16:00 98.0 67 18 101/60 (74) 97 Intake and Output 01/16/20 01/17/20 19:00 07:00 Intake Total 480 ml 480 ml Balance 480 ml 480 ml Intake Oral 480 ml 480 ml # Voids 2 General Appearance: WD/WN HEENT: normocephalic, atraumatic Respiratory: chest wall non-tender, lungs clear Cardiovascular: normal peripheral pulses, normal rate Abdomen: normal bowel sounds, soft, non tender Genitourinary: normal external genitalia Extremities: no cyanosis Skin: no rash 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 Lymphatic: no neck adenopathy Microbiology Date/Time Source Procedure Growth Status 01/15/20 07:53 Blood Blood Culture - Preliminary NO GROWTH AFTER 24 HOURS Resulted 01/15/20 07:45 Blood Blood Culture - Preliminary NO GROWTH AFTER 24 HOURS Resulted Laboratory Tests 01/17/20 05:55: White Blood Count 7.1, Red Blood Count 4.84, Hemoglobin 15.1, Hematocrit 43.0, Mean Corpuscular Volume 89, Mean Corpuscular Hemoglobin 31.2H, Mean Corpuscular Hemoglobin Concent 35.1, Red Cell Distribution Width 10.8L, Platelet Count 201, Mean Platelet Volume 6.7, Neutrophils (%) (Auto) 69.3, Lymphocytes (%) (Auto) 18.2L, Monocytes (%) (Auto) 10.0, Eosinophils (%) (Auto) 1.4, Basophils (%) ( Auto) 1.1, Erythrocyte Sedimentation Rate 5, Sodium Level 140, Potassium Level 4.2, Chloride Level 105, Carbon Dioxide Level 29, Anion Gap 6, Blood Urea Nitrogen 14, Creatinine 0.9, Estimat Glomerular Filtration Rate > 60, Glucose Level 89, Calcium Level 8.4L, Phosphorus Level 3.9, Magnesium Level 2.0, Total Bilirubin 0.6, Aspartate Amino Transf (AST/SGOT) 226H, Alanine Aminotransferase (ALT/SGPT) 101H, Alkaline Phosphatase 36L, C-Reactive Protein, Quantitative 0.8 , Total Protein 5.9L, Albumin 3.0L, Globulin 2.9, Albumin/Globulin Ratio 1.0 Current Medications Medications (Trade) Dose Ordered Sig/Diane Route PRN Reason Start Time Stop Time Status Last Admin Dose Admin Acetaminophen (Tylenol) 650 mg Q6H PRN ORAL Mild Pain (Pain Scale 1-3) 01/15/20 04:30 02/14/20 04:29 Acetaminophen (Tylenol) 650 mg Q6H PRN ORAL Temp >100.5 01/15/20 04:30 02/14/20 04:29 Acetaminophen/ Hydrocodone Bitart ([place] 5/325) 1 tab Q6H PRN ORAL For Pain 01/15/20 04:30 01/22/20 04:29 Cefepime HCl 2 gm/ Dextrose 55 ml @ 110 mls/hr EVERY 12 HOURS IV 01/15/20 21:00 01/22/20 20:59 01/17/20 09:43 Gabapentin (Neurontin) 600 mg FOUR TIMES A DAY ORAL 01/15/20 10:45 02/14/20 10:44 01/17/20 12:30 Gadobutrol (Gadavist) 7.5 mmol NOW PRN IV Radiology Procedure 01/16/20 17:45 01/20/20 17:37 Levetiracetam (Keppra) 500 mg DAILY ORAL 01/15/20 16:00 02/14/20 15:59 01/17/20 09:43 Metoprolol Tartrate (Lopressor) 50 mg Q12HR ORAL 01/15/20 10:45 04/14/20 10:44 01/17/20 09:43 Ondansetron HCl (Zofran) 4 mg Q6H PRN IVP Nausea & Vomiting 01/15/20 04:30 02/14/20 04:29 Vancomycin HCl (Vanco pharmacy to dose) 1 ea DAILY PRN MISC Per rx protocol 01/15/20 04:30 02/14/20 04:29 Vancomycin/Sodium Chloride 275 ml @ 183.333 mls/hr Q12HR@0000,1200 IVPB 01/17/20 00:00 01/22/20 00:00 01/17/20 12:30 Assessment/Plan Problems: (1) Cellulitis of hand, right (2) History of hypertension (3) Seizure disorder Assessment/Plan MRI reviewed, lots of edema Ortho called continue abx symptomatic treatment. monitor BP Jarrell Collins MD Jan 17, 2020 14:05
--- NOTE | 2020-01-17 15:57 | Internal Med Progress Note ---
Subjective Date of Service: Jan 17, 2020 Physician Name Leonel Segura Attending Physician Jc Kruse MD Current Medications Medications (Trade) Dose Ordered Sig/Diane Route PRN Reason Start Time Stop Time Status Last Admin Dose Admin Acetaminophen (Tylenol) 650 mg Q6H PRN ORAL Mild Pain (Pain Scale 1-3) 01/15/20 04:30 02/14/20 04:29 Acetaminophen (Tylenol) 650 mg Q6H PRN ORAL Temp >100.5 01/15/20 04:30 02/14/20 04:29 Acetaminophen/ Hydrocodone Bitart ([place] 5/325) 1 tab Q6H PRN ORAL For Pain 01/15/20 04:30 01/22/20 04:29 Cefepime HCl 2 gm/ Dextrose 55 ml @ 110 mls/hr EVERY 12 HOURS IV 01/15/20 21:00 01/22/20 20:59 01/17/20 09:43 Gabapentin (Neurontin) 600 mg FOUR TIMES A DAY ORAL 01/15/20 10:45 02/14/20 10:44 01/17/20 12:30 Gadobutrol (Gadavist) 7.5 mmol NOW PRN IV Radiology Procedure 01/16/20 17:45 01/20/20 17:37 Levetiracetam (Keppra) 500 mg DAILY ORAL 01/15/20 16:00 02/14/20 15:59 01/17/20 09:43 Metoprolol Tartrate (Lopressor) 50 mg Q12HR ORAL 01/15/20 10:45 04/14/20 10:44 01/17/20 09:43 Ondansetron HCl (Zofran) 4 mg Q6H PRN IVP Nausea & Vomiting 01/15/20 04:30 02/14/20 04:29 Vancomycin HCl (Vanco pharmacy to dose) 1 ea DAILY PRN MISC Per rx protocol 01/15/20 04:30 02/14/20 04:29 Vancomycin/Sodium Chloride 275 ml @ 183.333 mls/hr Q12HR@0000,1200 IVPB 01/17/20 00:00 01/22/20 00:00 01/17/20 12:30 Allergies: Coded Allergies: AMOXICILLIN (Verified Allergy, Unknown, 01/17/20) patient referred had episodes of mouth sores when he was 8 years old. He received 2 doses of uNasyn on 01/14/20 in the hospital with no reaction. Tolerates cephalosporins Subjective 24 YO M admitted with right hand pain/swelling. Now right hand cellulitis/ rhabdomyolysis. Cover for Int Med-DR Kruse Objective Last Vital Signs Date Time Temp Pulse Resp B/P (MAP) Pulse Ox O2 Delivery O2 Flow Rate FiO2 01/17/20 12:00 98.3 62 20 104/89 (94) 98 01/17/20 08:50 Room Air Laboratory Tests Test 01/17/20 05:55 White Blood Count 7.1 K/UL (4.8-10.8) Red Blood Count 4.84 M/UL (4.70-6.10) Hemoglobin 15.1 G/DL (14.2-18.0) Hematocrit 43.0 % (42.0-52.0) Mean Corpuscular Volume 89 FL (80-99) Mean Corpuscular Hemoglobin 31.2 PG (27.0-31.0) H Mean Corpuscular Hemoglobin Concent 35.1 G/DL (32.0-36.0) Red Cell Distribution Width 10.8 % (11.6-14.8) L Platelet Count 201 K/UL (150-450) Mean Platelet Volume 6.7 FL (6.5-10.1) Neutrophils (%) (Auto) 69.3 % (45.0-75.0) Lymphocytes (%) (Auto) 18.2 % (20.0-45.0) L Monocytes (%) (Auto) 10.0 % (1.0-10.0) Eosinophils (%) (Auto) 1.4 % (0.0-3.0) Basophils (%) (Auto) 1.1 % (0.0-2.0) Erythrocyte Sedimentation Rate 5 MM/HR (0-15) Sodium Level 140 MMOL/L (136-145) Potassium Level 4.2 MMOL/L (3.5-5.1) Chloride Level 105 MMOL/L (98-107) Carbon Dioxide Level 29 MMOL/L (21-32) Anion Gap 6 mmol/L (5-15) Blood Urea Nitrogen 14 mg/dL (7-18) Creatinine 0.9 MG/DL (0.55-1.30) Estimat Glomerular Filtration Rate > 60 mL/min (>60) Glucose Level 89 MG/DL (74-106) Calcium Level 8.4 MG/DL (8.5-10.1) L Phosphorus Level 3.9 MG/DL (2.5-4.9) Magnesium Level 2.0 MG/DL (1.8-2.4) Total Bilirubin 0.6 MG/DL (0.2-1.0) Aspartate Amino Transf (AST/SGOT) 226 U/L (15-37) H Alanine Aminotransferase (ALT/SGPT) 101 U/L (12-78) H Alkaline Phosphatase 36 U/L (46-116) L C-Reactive Protein, Quantitative 0.8 mg/dL (0.00-0.90) Total Protein 5.9 G/DL (6.4-8.2) L Albumin 3.0 G/DL (3.4-5.0) L Globulin 2.9 g/dL Albumin/Globulin Ratio 1.0 (1.0-2.7) Microbiology Date/Time Source Procedure Growth Status 01/15/20 07:53 Blood Blood Culture - Preliminary NO GROWTH AFTER 24 HOURS Resulted 01/15/20 07:45 Blood Blood Culture - Preliminary NO GROWTH AFTER 24 HOURS Resulted Intake and Output 01/16/20 01/17/20 19:00 07:00 Intake Total 480 ml 480 ml Balance 480 ml 480 ml Intake Oral 480 ml 480 ml # Voids 2 CXR Patient : NICHOLAS HAMEED Referring Physician: Leonel Segura MD ID Number: [id number] Service Date: 01/17/20 : 1995 Report Date: 01/17/20 Gender: M Accession No.: [id number] Location: Procedure: MRI Hand wo/w Contrast RT EXAM: MRI MRI Hand wo/w Contrast RT TECHNIQUE: MR examination of the right hand includes sagittal T1, coronal T1, proton density, T2 and STIR sequences as well as axial T1 and T2 sequences. Following administration of intravenous gadolinium, axial and coronal fat-suppressed T1 images obtained. CLINICAL HISTORY: History of trauma to hand. Swelling and pain. COMPARISON: None FINDINGS: The dominant abnormality is extensive swelling and edema noted in multiple muscle groups of the hand including abductor and flexor muscles, the lumbricals as well as the interosseous muscles. These affected muscles appear enlarged with diffuse striated edema. There is no distinct fluid collection within the affected muscles. On postcontrast images, there is intense enhancement both at the periphery of these muscles as well as striated enhancement of internal fibers. The bony structures of the hand appear intact. Normal marrow signal demonstrated. Joint spaces are maintained. Visualized tendinous and ligamentous structures are unremarkable. IMPRESSION: EXTENSIVE SWELLING AND EDEMA NOTED IN MULTIPLE MUSCLE GROUPS OF THE HAND WITH INTENSE ENHANCEMENT ON POSTCONTRAST IMAGES. GIVEN THE PATIENT'S HISTORY, FINDINGS SUGGESTIVE OF EXTENSIVE RHABDOMYOLYSIS OF THE HAND MUSCULATURE. NO MR EVIDENCE OF HEMATOMA, FLUID COLLECTION. NO ACUTE BONY ABNORMALITY DEMONSTRATED. Dictated By: Juan Do MD Electronically Signed By: Juan Do MD Signed Date/Time 01/17/20 0900 CC: Leonel Segura MD; Jc Kruse MD Objective PHYSICAL EXAMINATION: GENERAL: Patient is well-developed, well-nourished male, in no apparent distress. HEENT: Eyes, pupils are equal and responsive to light and accommodation. Extraocular movements are intact. NECK: Supple without lymphadenopathy. CHEST: Lungs are clear to auscultation bilaterally without wheezes or rales. CARDIOVASCULAR: Regular rhythm and rate. S1, S2 are normal without murmurs, rubs, or gallops. ABDOMEN: Soft, nontender, and nondistended. Positive bowel sounds. No evidence of hepatosplenomegaly. Currently, no rebound or guarding noted. EXTREMITIES: Right hand is noticeably swollen compared to the left. Swelling includes both the dorsum and palmar surface. Patient is unable to extend right second through fifth fingers. NEUROLOGICAL: Cranial nerves II through XII are grossly intact without focal deficits. Motor strength is 5/5 bilaterally. Deep tendon reflexes are 2+ plantar. Assessment/Plan Assessment/Plan ASSESSMENT: This is a 24-year-old male. 1. Cellulitis/rhabdomyolysis of the right hand. 2. Swelling of the right hand. 3. Pain of the right hand. 4. Anxiety disorder. 5. Seizure disorder. 6. Tachycardia. 7. Elevated liver funct tests TREATMENT: 1. Right hand cellulitis/right hand pain. MRI=rhabdomyolysis. ABX= vancomycin and cefepime. Unasyn will be discontinued secondary to amoxicillin allergy. S/P levaquin. Infectious Disease= Dr. Mac. Surgery consultation= Dr. Caban. 2. Anxiety disorder. Continue Neurontin as above. 3. Seizure disorder. Continue Keppra as above. 4. Tachycardic. Continue metoprolol as above. 5. Abdominal ultrasound pending Leonel Segura MD Jan 17, 2020 15:57
[2020-01-17 16:00] VITALS: BP 113/54
--- NOTE | 2020-01-17 16:05 | NUR ---
CASE MANAGEMENT: REVIEW 01/17/20 SI:RIGHT HAND CELLULITIS 97.3 66 20 107/61 97 % ON RA CA+ 8.4 AST/ALT 226/101 IS:IV VANCOMYCIN BID IV CEFEPIME BID IV D5@75ML/HR NEURONTIN PO QQID KEPPRA PO QD LOPRESSOR PO BID MRI HAND-EXTENSIVE SWELLING AND EDEMA NOTED IN MULTIPLE MUSCLE GROUPS OF THE HAND WITH INTENSE ENHANCEMENT ON POSTCONTRAST IMAGES. GIVEN THE PATIENT'S HISTORY, FINDINGS SUGGESTIVE OF EXTENSIVE RHABDOMYOLYSIS OF THE HAND MUSCULATURE. \: 3E MED SURG UNIT PLAN: BLOOD CX IN PROCESS
--- NOTE | 2020-01-17 16:10 | Consultation ---
History of Present Illness General Date patient seen: Jan 17, 2020 Present Illness HPI Asked to see patient by Dr. Leonel Segura. This is a very pleasant 24-year-old male who sustained a laceration on the dorsum of his right hand from wooden furniture. Patient not think much of it at first just some pain and discomfort but over the subsequent 24 hours began developing significant edema and discomfort in his right hand. Went to outside facility for evaluation was transferred to [facility] for further care and management. On admission identified to have significantly inflamed right hand surgery called to evaluate and assist with care. Patient seen, patient evaluated, chart reviewed. Denies any nausea vomiting fever chills. States pain is slowly subsiding but was 8 out of 10 at max currently less imaging reviewed labs noted antibiotics as per infectious disease Allergies: Coded Allergies: AMOXICILLIN (Verified Allergy, Unknown, 01/17/20) patient referred had episodes of mouth sores when he was 8 years old. He received 2 doses of uNasyn on 01/14/20 in the hospital with no reaction. Tolerates cephalosporins COVID-19 Screening Contact w/high risk pt: No Recent Travel to affected area: No Experienced COVID-19 symptoms?: No Medication History Scheduled PRN Gabapentin* (Gabapentin*), 600 MG ORAL FOUR TIMES A DAY PRN for For Anxiety, ( Reported) Levetiracetam (Keppra), 750 MG ORAL TID PRN for For Seizures, (Reported) Metoprolol Tartrate* (Metoprolol Tartrate*), 50 MG ORAL BID PRN for For High Blood Pressure, (Reported) Patient History History Provided By: Patient Healthcare decision maker Resuscitation status Advanced Directive on File Past Medical/Surgical History Past Medical/Surgical History: (1) Cellulitis of hand, right Review of Systems Review of Symptoms General ROS: no weight loss or fever Psychological ROS: no depression or mood changes, no memory loss Ophthalmic ROS: no visual changes or eye irritation ENT ROS: no nasal congestion, hearing loss, dizziness Allergy and Immunology ROS: no allergic symptoms or urticaria Hematological and Lymphatic ROS: no swollen glands, unusual bleeding or bruising Endocrine ROS: no polyuria, polydipsia, weight changes, temperature intolerance Respiratory ROS: no cough, shortness of breath, or wheezing Cardiovascular ROS: no chest pain or dyspnea on exertion Gastrointestinal ROS: denies abdominal pain, bright red blood in stool. Musculoskeletal ROS: no myalgias or arthralgias Neurological ROS: no TIA or stroke symptoms Dermatological ROS: no new or changing skin lesions, rashes or pruritis Physical Exam Physical Exam General appearance: alert, cooperative, no distress, appears stated age Head: Normocephalic, without obvious abnormality, atraumatic Eyes: conjunctivae/corneas clear. PERRL, EOM's intact. Fundi benign Throat: Lips, mucosa, and tongue normal. Teeth and gums normal Neck: supple, symmetrical, trachea midline, no adenopathy, thyroid: not enlarged, symmetric, no tenderness/mass/nodules, no carotid bruit and no JVD Lungs: clear to auscultation bilaterally Heart: regular rate and rhythm, S1, S2 normal, no murmur, click, rub or gallop Abdomen: soft, non-tender. Bowel sounds normal. No masses, no organomegaly Extremities: extremities right hand with cellulitis digits wrist decreased range of motion active and passive at the fingers wrist range of motion okay pulses okay 1 cm small healed laceration identified on the dorsal mid aspect of the hand Pulses: 2+ and symmetric Skin: Skin color, texture, turgor normal. No rashes or lesions Neurologic: Grossly normal Last 24 Hour Vital Signs Date Time Temp Pulse Resp B/P (MAP) Pulse Ox O2 Delivery O2 Flow Rate FiO2 01/17/20 12:00 98.3 62 20 104/89 (94) 98 01/17/20 09:43 64 119/67 01/17/20 08:50 Room Air 01/17/20 08:00 97.5 64 18 119/67 (84) 99 01/17/20 04:00 98.0 62 16 115/60 (78) 97 01/17/20 00:00 97.8 53 14 111/52 (71) 97 01/16/20 21:12 88 122/100 01/16/20 21:00 Room Air 01/16/20 19:59 98.1 77 17 113/64 (80) 98 Intake and Output 01/16/20 01/17/20 19:00 07:00 Intake Total 480 ml 480 ml Balance 480 ml 480 ml Intake Oral 480 ml 480 ml # Voids 2 Laboratory Tests Test 01/17/20 05:55 White Blood Count 7.1 K/UL (4.8-10.8) Red Blood Count 4.84 M/UL (4.70-6.10) Hemoglobin 15.1 G/DL (14.2-18.0) Hematocrit 43.0 % (42.0-52.0) Mean Corpuscular Volume 89 FL (80-99) Mean Corpuscular Hemoglobin 31.2 PG (27.0-31.0) H Mean Corpuscular Hemoglobin Concent 35.1 G/DL (32.0-36.0) Red Cell Distribution Width 10.8 % (11.6-14.8) L Platelet Count 201 K/UL (150-450) Mean Platelet Volume 6.7 FL (6.5-10.1) Neutrophils (%) (Auto) 69.3 % (45.0-75.0) Lymphocytes (%) (Auto) 18.2 % (20.0-45.0) L Monocytes (%) (Auto) 10.0 % (1.0-10.0) Eosinophils (%) (Auto) 1.4 % (0.0-3.0) Basophils (%) (Auto) 1.1 % (0.0-2.0) Erythrocyte Sedimentation Rate 5 MM/HR (0-15) Sodium Level 140 MMOL/L (136-145) Potassium Level 4.2 MMOL/L (3.5-5.1) Chloride Level 105 MMOL/L (98-107) Carbon Dioxide Level 29 MMOL/L (21-32) Anion Gap 6 mmol/L (5-15) Blood Urea Nitrogen 14 mg/dL (7-18) Creatinine 0.9 MG/DL (0.55-1.30) Estimat Glomerular Filtration Rate > 60 mL/min (>60) Glucose Level 89 MG/DL (74-106) Calcium Level 8.4 MG/DL (8.5-10.1) L Phosphorus Level 3.9 MG/DL (2.5-4.9) Magnesium Level 2.0 MG/DL (1.8-2.4) Total Bilirubin 0.6 MG/DL (0.2-1.0) Aspartate Amino Transf (AST/SGOT) 226 U/L (15-37) H Alanine Aminotransferase (ALT/SGPT) 101 U/L (12-78) H Alkaline Phosphatase 36 U/L (46-116) L C-Reactive Protein, Quantitative 0.8 mg/dL (0.00-0.90) Total Protein 5.9 G/DL (6.4-8.2) L Albumin 3.0 G/DL (3.4-5.0) L Globulin 2.9 g/dL Albumin/Globulin Ratio 1.0 (1.0-2.7) Height (Feet): 5 Height (Inches): 10.00 Weight (Pounds): 135 Medications Current Medications Medications (Trade) Dose Ordered Sig/Diane Route PRN Reason Start Time Stop Time Status Last Admin Dose Admin Acetaminophen (Tylenol) 650 mg Q6H PRN ORAL Mild Pain (Pain Scale 1-3) 01/15/20 04:30 02/14/20 04:29 Acetaminophen (Tylenol) 650 mg Q6H PRN ORAL Temp >100.5 01/15/20 04:30 02/14/20 04:29 Acetaminophen/ Hydrocodone Bitart ([place] 5/325) 1 tab Q6H PRN ORAL For Pain 01/15/20 04:30 01/22/20 04:29 Cefepime HCl 2 gm/ Dextrose 55 ml @ 110 mls/hr EVERY 12 HOURS IV 01/15/20 21:00 01/22/20 20:59 01/17/20 09:43 Gabapentin (Neurontin) 600 mg FOUR TIMES A DAY ORAL 01/15/20 10:45 02/14/20 10:44 01/17/20 12:30 Gadobutrol (Gadavist) 7.5 mmol NOW PRN IV Radiology Procedure 01/16/20 17:45 01/20/20 17:37 Levetiracetam (Keppra) 500 mg DAILY ORAL 01/15/20 16:00 02/14/20 15:59 01/17/20 09:43 Metoprolol Tartrate (Lopressor) 50 mg Q12HR ORAL 01/15/20 10:45 04/14/20 10:44 01/17/20 09:43 Ondansetron HCl (Zofran) 4 mg Q6H PRN IVP Nausea & Vomiting 01/15/20 04:30 02/14/20 04:29 Vancomycin HCl (Vanco pharmacy to dose) 1 ea DAILY PRN MISC Per rx protocol 01/15/20 04:30 02/14/20 04:29 Vancomycin/Sodium Chloride 275 ml @ 183.333 mls/hr Q12HR@0000,1200 IVPB 01/17/20 00:00 01/22/20 00:00 01/17/20 12:30 Assessment/Plan Problem List: (1) Cellulitis of hand, right Assessment & Plan: 24-year-old male who sustained a right hand laceration trauma from a wooden table he was moving. Since his developed significant cellulitis. Extremities right hand with cellulitis digits wrist decreased range of motion active and passive at the fingers wrist range of motion okay pulses okay 1 cm small healed laceration identified on the dorsal mid aspect of the hand MRI noted no abscess on exam clinically no drainage tender with decreased range of motion but improving as per patient recommend cont abx will follow with exams thank you The dominant abnormality is extensive swelling and edema noted in multiple muscle groups of the hand including abductor and flexor muscles, the lumbricals as well as the interosseous muscles. These affected muscles appear enlarged with diffuse striated edema. There is no distinct fluid collection within the affected muscles. On postcontrast images, there is intense enhancement both at the periphery of these muscles as well as striated enhancement of internal fibers. The bony structures of the hand appear intact. Normal marrow signal demonstrated. Joint spaces are maintained. Visualized tendinous and ligamentous structures are unremarkable. IMPRESSION: EXTENSIVE SWELLING AND EDEMA NOTED IN MULTIPLE MUSCLE GROUPS OF THE HAND WITH INTENSE ENHANCEMENT ON POSTCONTRAST IMAGES. GIVEN THE PATIENT'S HISTORY, FINDINGS SUGGESTIVE OF EXTENSIVE RHABDOMYOLYSIS OF THE HAND MUSCULATURE. NO MR EVIDENCE OF HEMATOMA, FLUID COLLECTION. NO ACUTE BONY ABNORMALITY DEMONSTRATED. ICD Codes: L03.113 - Cellulitis of right upper limb SNOMED: [id number] Lex Caban Jan 17, 2020 16:10
--- NOTE | 2020-01-17 19:29 | NUR ---
HAND-OFF: Report given to Stephani RN. Patient is stable.
[2020-01-17 20:00] VITALS: BP 127/76
[2020-01-18] VITALS: BP 115/54
[2020-01-18] MEDS: Vancomycin 1.25gm/NS Premix q24h IVPB SCH ×2 (00:19→12:00)
[2020-01-18 04:00] VITALS: BP 109/57
[2020-01-18 06:19] LABS: BASOPHILS % (AUTO) 0.9 % (0.0-2.0); HEMATOCRIT 43.6 % (42.0-52.0); HEMOGLOBIN 15.3 G/DL (14.2-18.0); MEAN CORPUSCULAR VOLUME 88 FL (80-99); MONOCYTES % (AUTO) 8.1 % (1.0-10.0); NEUTROPHILS % (AUTO) 77.1 % (45.0-75.0); PLATELET COUNT 212 K/UL (150-450); RED BLOOD COUNT 4.97 M/UL (4.70-6.10); RED CELL DISTRIBUTION WIDTH 10.4 % (11.6-14.8); WHITE BLOOD COUNT 10.1 K/UL (4.8-10.8)
[2020-01-18 06:58] LABS: ANION GAP 9 mmol/L (5-15); BLOOD UREA NITROGEN 11 mg/dL (7-18); CALCIUM 8.3 MG/DL (8.5-10.1); CARBON DIOXIDE 28 MMOL/L (21-32); CHLORIDE 102 MMOL/L (98-107); CREATININE 1.1 MG/DL (0.55-1.30); POTASSIUM 4.1 MMOL/L (3.5-5.1); SODIUM 138 MMOL/L (136-145)
--- NOTE | 2020-01-18 07:30 | NUR ---
NURSE NOTES: Patient is in bed awake and able to verbalize needs. Stable. Denies pain or SOB. Patient instructed to use call light for assistance, verbalized understanding. Patient's right hand is swollen, CSM intact. Patient is in bed in locked position with call light within reach. All needs met at this time. WIll continue to monitor.
--- NOTE | 2020-01-18 07:34 | NUR ---
HAND-OFF: Report given to BARBARA Lucero.
[2020-01-18 08:00] VITALS: BP 116/54
--- NOTE | 2020-01-18 08:09 | Consultation ---
Consult Note Consult Note 24 yo male with laceration to dorsum of rt hand 1 week ago with progressive pain erythema and swelling. pt was admitted to [facility] on Thursday for management and [place] [facility] pt is being seen by ID and improving steadily. MRI done not showing any fluid collection/abscess no fever/chills. no WBC count. swelling reducing, ROM improving. Recommend ice and elevation with continued abx course per ID. Will also have PT see him. no need for surgical intervention at this time Adriana Moncada Jan 18, 2020 08:08
[2020-01-18] MEDS: Metoprolol Tartrate 50mg tab ORAL SCH (08:22)
[2020-01-18] MEDS: Cefepime HCl 2 GM in D5W 55 ML IV SCH (08:22)
--- NOTE | 2020-01-18 08:40 | NUR ---
NURSE NOTES: Ice pack applied to hand, right forearm and hand elevated on pillows as ordered.
[2020-01-18] MEDS ORDERED: BACTRIM DS TAB1 EAC1 ORAL (10:36)
[2020-01-18] MEDS ORDERED: LEVOFLOXACIN500 MG ORAL (10:36)
--- NOTE | 2020-01-18 10:40 | Internal Med Progress Note ---
Subjective Date of Service: Jan 18, 2020 Physician Name Leonel Segura Attending Physician Jc Kruse MD Current Medications Medications (Trade) Dose Ordered Sig/Diane Route PRN Reason Start Time Stop Time Status Last Admin Dose Admin Acetaminophen (Tylenol) 650 mg Q6H PRN ORAL Mild Pain (Pain Scale 1-3) 01/15/20 04:30 02/14/20 04:29 Acetaminophen (Tylenol) 650 mg Q6H PRN ORAL Temp >100.5 01/15/20 04:30 02/14/20 04:29 Acetaminophen/ Hydrocodone Bitart ([place] 5/325) 1 tab Q6H PRN ORAL For Pain 01/15/20 04:30 01/22/20 04:29 Cefepime HCl 2 gm/ Dextrose 55 ml @ 110 mls/hr EVERY 12 HOURS IV 01/15/20 21:00 01/22/20 20:59 01/18/20 08:22 Gabapentin (Neurontin) 600 mg FOUR TIMES A DAY ORAL 01/15/20 10:45 02/14/20 10:44 01/18/20 08:23 Gadobutrol (Gadavist) 7.5 mmol NOW PRN IV Radiology Procedure 01/16/20 17:45 01/20/20 17:37 Levetiracetam (Keppra) 500 mg DAILY ORAL 01/15/20 16:00 02/14/20 15:59 01/18/20 08:22 Metoprolol Tartrate (Lopressor) 50 mg Q12HR ORAL 01/15/20 10:45 04/14/20 10:44 01/18/20 08:22 Ondansetron HCl (Zofran) 4 mg Q6H PRN IVP Nausea & Vomiting 01/15/20 04:30 02/14/20 04:29 Vancomycin HCl (Vanco pharmacy to dose) 1 ea DAILY PRN MISC Per rx protocol 01/15/20 04:30 02/14/20 04:29 Vancomycin/Sodium Chloride 275 ml @ 183.333 mls/hr Q12HR@0000,1200 IVPB 01/17/20 00:00 01/22/20 00:00 01/18/20 00:19 Allergies: Coded Allergies: AMOXICILLIN (Verified Allergy, Unknown, 01/17/20) patient referred had episodes of mouth sores when he was 8 years old. He received 2 doses of uNasyn on 01/14/20 in the hospital with no reaction. Tolerates cephalosporins ROS Limited/Unobtainable: No Constitutional: Reports: no symptoms HEENT: Reports: no symptoms Cardiovascular: Reports: no symptoms Respiratory: Reports: no symptoms Gastrointestinal/Abdominal: Reports: no symptoms Genitourinary: Reports: no symptoms Neurologic/Psychiatric: Reports: no symptoms Subjective 24 YO M admitted with right hand pain/swelling. Now right hand cellulitis/ rhabdomyolysis. Cover for Int Bin-DR Kruse Objective Last Vital Signs Date Time Temp Pulse Resp B/P (MAP) Pulse Ox O2 Delivery O2 Flow Rate FiO2 01/18/20 09:00 Room Air 01/18/20 08:22 71 116/54 01/18/20 08:00 99.3 20 96 Laboratory Tests Test 01/18/20 05:50 White Blood Count 10.1 K/UL (4.8-10.8) Red Blood Count 4.97 M/UL (4.70-6.10) Hemoglobin 15.3 G/DL (14.2-18.0) Hematocrit 43.6 % (42.0-52.0) Mean Corpuscular Volume 88 FL (80-99) Mean Corpuscular Hemoglobin 30.9 PG (27.0-31.0) Mean Corpuscular Hemoglobin Concent 35.2 G/DL (32.0-36.0) Red Cell Distribution Width 10.4 % (11.6-14.8) L Platelet Count 212 K/UL (150-450) Mean Platelet Volume 7.1 FL (6.5-10.1) Neutrophils (%) (Auto) 77.1 % (45.0-75.0) H Lymphocytes (%) (Auto) 13.0 % (20.0-45.0) L Monocytes (%) (Auto) 8.1 % (1.0-10.0) Eosinophils (%) (Auto) 1.0 % (0.0-3.0) Basophils (%) (Auto) 0.9 % (0.0-2.0) Erythrocyte Sedimentation Rate 3 MM/HR (0-15) Sodium Level 138 MMOL/L (136-145) Potassium Level 4.1 MMOL/L (3.5-5.1) Chloride Level 102 MMOL/L (98-107) Carbon Dioxide Level 28 MMOL/L (21-32) Anion Gap 9 mmol/L (5-15) Blood Urea Nitrogen 11 mg/dL (7-18) Creatinine 1.1 MG/DL (0.55-1.30) Estimat Glomerular Filtration Rate > 60 mL/min (>60) Glucose Level 91 MG/DL (74-106) Calcium Level 8.3 MG/DL (8.5-10.1) L C-Reactive Protein, Quantitative < 0.4 mg/dL (0.00-0.90) Intake and Output 01/17/20 01/18/20 19:00 07:00 Intake Total 500 ml 476.666 ml Balance 500 ml 476.666 ml Intake Oral 500 ml IV Total 476.666 ml # Voids 2 2 # Bowel Movements 1 Objective PHYSICAL EXAMINATION: GENERAL: Patient is well-developed, well-nourished male, in no apparent distress. HEENT: Eyes, pupils are equal and responsive to light and accommodation. Extraocular movements are intact. NECK: Supple without lymphadenopathy. CHEST: Lungs are clear to auscultation bilaterally without wheezes or rales. CARDIOVASCULAR: Regular rhythm and rate. S1, S2 are normal without murmurs, rubs, or gallops. ABDOMEN: Soft, nontender, and nondistended. Positive bowel sounds. No evidence of hepatosplenomegaly. Currently, no rebound or guarding noted. EXTREMITIES: Right hand is noticeably swollen compared to the left. Swelling includes both the dorsum and palmar surface. Patient is unable to extend right second through fifth fingers. NEUROLOGICAL: Cranial nerves II through XII are grossly intact without focal deficits. Motor strength is 5/5 bilaterally. Deep tendon reflexes are 2+ plantar. Assessment/Plan Assessment/Plan ASSESSMENT: This is a 24-year-old male. 1. Cellulitis/rhabdomyolysis of the right hand. 2. Swelling of the right hand. 3. Pain of the right hand. 4. Anxiety disorder. 5. Seizure disorder. 6. Tachycardia. 7. Elevated liver funct tests TREATMENT: 1. Right hand cellulitis/right hand pain. MRI=rhabdomyolysis. ABX= vancomycin and cefepime. Discharge home on Bactrim D/S and levaquin for 10 days. Unasyn will be discontinued secondary to amoxicillin allergy. S/P levaquin. Infectious Disease= Dr. Mac. Surgery consultation= Dr. Caban. 2. Anxiety disorder. Continue Neurontin as above. 3. Seizure disorder. Continue Keppra as above. 4. Tachycardic. Continue metoprolol as above. 5. Abdominal ultrasound pending 6. Discharge home today Leonel Segura MD Jan 18, 2020 10:40
--- NOTE | 2020-01-18 10:53 | NUR ---
DISCHARGE PLANNING: PATIENT REFERRED TO [facility] T:[phone] F:[phone] CM WILL F/U Addendum: 01/18/20 at 1055 by ROBIN CROWELL LVN PATIENT MAY DISCHARGE
--- NOTE | 2020-01-18 10:55 | NUR ---
PT EVALUATION NOTE Patient seen for initial evaluation. Patient is independent with all functional mobility. Reviewed with patient edema control strategies, i.e. elevation, using ice. Instructed patient in ROM exercises for R elbow, wrist and hand. Patient able to demonstrate after instruction. Further skilled inpatient PT intervention not indicated, patient discharged from PT, Jazmine JIMENEZ notified. Recommend outpatient PT follow-up after discharge. Addendum: 01/18/20 at 1252 by BLAINE KAY PT Amended: Links added.
[2020-01-18 12:00] VITALS: BP 114/58
--- NOTE | 2020-01-18 13:10 | NUR ---
*-* INSURANCE *-* UPDATED CLINICALS AND REVIEW HAVE BEEN FAXED TO: SHELLI BRITO:DEBRA REF# [id number] P; [phone] F: [phone] Addendum: 01/18/20 at 1313 by PK MULLINS CM DISCHARGE INSTRUCTION HAVE BEEN FAXED NO DISCHARGE SUMMARY IN THE SYSTEM
--- NOTE | 2020-01-18 13:23 | NUR ---
NURSE NOTES: Patient discharged home as ordered. Thorough discharge instructions given to patient by Dr. Segura and reinforced by RN. Patient made aware of follow up appointment with Dr. Caban, patient verbalized that he will come see the doctor as scheduled. All medications returned to patient. Prescription given to patient and patient verbalized that he will get them filled at [facility]. Patient's skin is c/d/i. No IV access. Armbands removed. Patient assisted outside by staff without incident.
--- NOTE | 2020-01-18 14:06 | NUR ---
DISCHARGE PLANNING: PATIENT ACCEPTED TO [facility] T:[phone] F:[phone] Addendum: 01/18/20 at 1408 by ROBIN CROWELL LVN CM INFORMED DR ACE CLARKE ASKED FOR DC ORDER CM WILL F/U
--- NOTE | 2020-01-18 14:11 | NUR ---
DISCHARGE PLANNING: PATIENT ACCEPTED TO [facility] T:[phone] F:[phone] MAY DC HOME ; DC ORDER IN PLACE
--- NOTE | 2020-01-18 21:02 | Surgery Progress Note ---
Surgery Progress Note Subjective Additional Comments Patient seen and examined bedside. This is a late entry as patient was seen this morning but was able to write no until this evening. Long discussion patient with patient regarding his findings this morning his finger edema was significantly improved his range of motion in his hand was improved he still does have hand edema but decreasing. ESR CRP inflammatory markers identified. Patient overall improving plan for discharge today. Objective Last 24 Hour Vital Signs Date Time Temp Pulse Resp B/P (MAP) Pulse Ox O2 Delivery O2 Flow Rate FiO2 01/18/20 12:00 97.8 79 20 114/58 (76) 94 01/18/20 09:00 Room Air 01/18/20 08:22 71 116/54 01/18/20 08:00 99.3 71 20 116/54 (74) 96 01/18/20 04:00 98.0 59 17 109/57 (74) 98 01/18/20 00:00 98.9 67 17 115/54 (74) 97 I&O Intake and Output 01/17/20 01/18/20 19:00 07:00 Intake Total 500 ml 476.666 ml Balance 500 ml 476.666 ml Intake Oral 500 ml IV Total 476.666 ml # Voids 2 2 # Bowel Movements 1 Dressing: dry Wound: clean Cardiovascular: RSR Respiratory: clear Abdomen: soft, flat, non-tender, present bowel sounds Extremities: edema, no tenderness, no cyanosis, other Laboratory Tests Test 01/18/20 05:50 White Blood Count 10.1 K/UL (4.8-10.8) Red Blood Count 4.97 M/UL (4.70-6.10) Hemoglobin 15.3 G/DL (14.2-18.0) Hematocrit 43.6 % (42.0-52.0) Mean Corpuscular Volume 88 FL (80-99) Mean Corpuscular Hemoglobin 30.9 PG (27.0-31.0) Mean Corpuscular Hemoglobin Concent 35.2 G/DL (32.0-36.0) Red Cell Distribution Width 10.4 % (11.6-14.8) L Platelet Count 212 K/UL (150-450) Mean Platelet Volume 7.1 FL (6.5-10.1) Neutrophils (%) (Auto) 77.1 % (45.0-75.0) H Lymphocytes (%) (Auto) 13.0 % (20.0-45.0) L Monocytes (%) (Auto) 8.1 % (1.0-10.0) Eosinophils (%) (Auto) 1.0 % (0.0-3.0) Basophils (%) (Auto) 0.9 % (0.0-2.0) Erythrocyte Sedimentation Rate 3 MM/HR (0-15) Sodium Level 138 MMOL/L (136-145) Potassium Level 4.1 MMOL/L (3.5-5.1) Chloride Level 102 MMOL/L (98-107) Carbon Dioxide Level 28 MMOL/L (21-32) Anion Gap 9 mmol/L (5-15) Blood Urea Nitrogen 11 mg/dL (7-18) Creatinine 1.1 MG/DL (0.55-1.30) Estimat Glomerular Filtration Rate > 60 mL/min (>60) Glucose Level 91 MG/DL (74-106) Calcium Level 8.3 MG/DL (8.5-10.1) L C-Reactive Protein, Quantitative < 0.4 mg/dL (0.00-0.90) Plan Problems: (1) Cellulitis of hand, right Assessment & Plan: 24-year-old male who sustained a right hand laceration trauma from a wooden table he was moving. Since his developed significant cellulitis. Extremities right hand with cellulitis digits wrist decreased range of motion active and passive at the fingers wrist range of motion okay pulses okay 1 cm small healed laceration identified on the dorsal mid aspect of the hand MRI noted no abscess on exam clinically no drainage tender with decreased range of motion but improving as per patient recommend cont abx will follow with exams Overall improved. Ortho input appreciated. Plan for discharge. Outpatient follow-up given for patient. Care instructions given to patient. thank you The dominant abnormality is extensive swelling and edema noted in multiple muscle groups of the hand including abductor and flexor muscles, the lumbricals as well as the interosseous muscles. These affected muscles appear enlarged with diffuse striated edema. There is no distinct fluid collection within the affected muscles. On postcontrast images, there is intense enhancement both at the periphery of these muscles as well as striated enhancement of internal fibers. The bony structures of the hand appear intact. Normal marrow signal demonstrated. Joint spaces are maintained. Visualized tendinous and ligamentous structures are unremarkable. IMPRESSION: EXTENSIVE SWELLING AND EDEMA NOTED IN MULTIPLE MUSCLE GROUPS OF THE HAND WITH INTENSE ENHANCEMENT ON POSTCONTRAST IMAGES. GIVEN THE PATIENT'S HISTORY, FINDINGS SUGGESTIVE OF EXTENSIVE RHABDOMYOLYSIS OF THE HAND MUSCULATURE. NO MR EVIDENCE OF HEMATOMA, FLUID COLLECTION. NO ACUTE BONY ABNORMALITY DEMONSTRATED. Lex Caban Jan 18, 2020 21:02
--- NOTE | 2020-01-19 08:45 | Consultation ---
DATE OF CONSULTATION: 01/18/2020 ORTHOPEDIC CONSULTATION CONSULTING PHYSICIAN: Moises Gilmore MD. HISTORY OF PRESENT ILLNESS: The patient is a very pleasant 24-year-old gentleman who was moving some hidden furniture a week ago. He had very small dorsal laceration to the right hand. He washed his hands and continued his day and noticed that evening and the following day when his hands are getting very painful, the next morning with some swelling in the hand and inability to fully flex and extend the fingers. He went to urgent care and they told to go to the emergency room so he went to [facility] where he was admitted and started on IV antibiotics. He was subsequently transferred to [facility] on 01/15/2020 for pain management. He indicates that since his admission here, he was continued on IV antibiotics, he was slowing improving, has not been able to get much more motion back, working on flexion and extension of the wrist as well as making a fist. He has not had any fever. He has not had any white count. He indicates that erythema and swelling is coming down. He has been seen by Infectious Diseases as well as General Surgery team. MRI was done; however, revealing significant edema, although no fluid collection or abscess. Orthopedic consult has been called for additional evaluation and recommendation. PAST MEDICAL HISTORY: None. PAST SURGICAL HISTORY: None. CURRENT MEDICATIONS: Please see chart. ALLERGIES: To amoxicillin. SOCIAL HISTORY: He lives independently. He does not drink or smoke. PHYSICAL EXAMINATION: GENERAL: A pleasant gentleman who is cooperative to examination. EXTREMITIES: Examination of the right hand, there is a 1.5 cm laceration on the dorsum of the hand. There is still swelling in this area; however, the patient states this is much better than previous. He is able to fully flex and extend at the thumb and the index finger. He has difficulty fully extending the middle, ring, and small finger; however, he can flex them and can make a fist. He can flex and extend at the wrist. There is no tracking of fluid or swelling up into the forearm. He has good range of motion of the elbow. He is neurovascularly intact. X-RAY AND MRI: MRI is reviewed. There is evidence of edema and swelling. There is no evidence of hematoma, fluid collection, or abscess. IMPRESSION: Right hand cellulitis, improving. DISCUSSIONS: At this time, I discussed with the patient my findings. I recommend continue antibiotic regimen per Infectious Diseases team. I also recommend icing and elevating and having physical therapy continue to work on range of motion mobility. He is in agreement. We will defer long-term antibiotic regimen to the Infectious Disease team and continue to monitor his progress. At this point, I do not see any need for urgent surgical intervention. This was all discussed with the patient as well as nursing at bedside. Moises Gilmore M.D. Rica Kelly DR: DMITRY JOB#: [id number] CC: KURT
--- NOTE | 2020-01-19 11:48 | NUR ---
*-* INSURANCE *-* UPDATED CLINICALS NO DISCHARGE SUMMARY IN THE SYSTEM UNABLE TO FAX: SHELLI BRITO:DEBRA REF# [id number] P; [phone] F: [phone]
--- NOTE | 2020-01-19 12:09 | Discharge Summary ---
Discharge Summary Discharge Summary _ DATE OF ADMISSION: 01/15/2020 DATE OF DISCHARGE: 01/18/2020 DISCHARGED BY: Dr. Kruse REASON FOR ADMISSION: 24 years old male with past medical history of seizure disorder, anxiety disorder, presented with a chief complaint of right hand pain and swelling. Patient apparently tries to move abandoned table by the site of the street and injured his right hand. Patient woke up the next morning and experienced numbness and swelling . he was unable to extend his fingers. Patient subsequently presented to [facility] emergency room . MRI at that time revealed swelling of the right hand , but no osteomyelitis. Patient received empiric antibiotic and transferred to [facility] for insurance purposes. CONSULTANTS: critical care Dr. Collins ID specialist Dr. Mac surgery Dr. Caban orthopedic surgeon [facility] COURSE: Patient admitted to medical surgical floor. Patient started on the IV antibiotic as per ID specialist recommendation. Pain management was addressed. MRI of the hand showed extensive swelling and edema in multiply muscle groups of the hand with intense enhancement post contrast images. Given the patient history findings suggestive of extensive rhabdomyolysis of the hand musculature. No MRI evidence of hematoma or fluid collection. No acute bony abnormality. Noted elevated LFT, trending down. Abdominal ultrasound was negative. Hepatitis and panel was negative. HIV serology was nonreactive. CRP trended down from initial 1.8 down to less than 0.4. Blood culture came back negative. Patient remained hemodynamically stable. Seizure precaution maintained. Keppra continued. No evidence of seizure activity while in the hospital. Blood pressure was managed with beta-chase and remained stable. General surgeon seen and evaluated patient . no need for surgical intervention. Range of motion was slowly improving and edema was subsiding. Orthopedic surgeon also seen and evaluated patient and recommended continue antibiotic regimen, icing and elevation of the extremity along with physical therapy for work on range of motion mobility. 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 Patient remained afebrile no leukocytosis Patient clinically stabilized and was ready for discharge home on oral antibiotics to complete the course for additional 10 days. FINAL DIAGNOSES: Right hand cellulitis Right hand pain Seizure disorder Anxiety disorder Hypertension Elevated LFT-improving DISCHARGE MEDICATIONS: See Medication Reconciliation list. DISCHARGE INSTRUCTIONS: Patient was discharged home. Follow-up with primary care provider in 1 to 2 weeks. I have been assigned to dictate discharge summary for this account. I was not involved in the patient's management. Jodee Guevara NP Jan 19, 2020 12:09
== END 2020-01-18 13:20 | disposition home or self-care (01) | DRG 603 ==
LOC: 3E 02:51
DX: L03.113 Cellulitis of right upper limb (principal); M62.82 Rhabdomyolysis; S61.411S Laceration without foreign body of right hand, sequela; W45.8XXS Other foreign body or object entering through skin, sequela; F41.9 Anxiety disorder, unspecified; R00.0 Tachycardia, unspecified; G40.909 Epilepsy, unspecified, not intractable, without status epilepticus; Z88.1 Allergy status to other antibiotic agents; Z88.2 Allergy status to sulfonamides; I10 Essential (primary) hypertension; R79.89 Other specified abnormal findings of blood chemistry
CPT/HCPCS: 36415; 76700; 80048; 80053; 80202; 83735; 84100; 85007; 85025; 85651; 86140; 86703; 86705; 86709; 86803; 87040; 87340; A9585